=== PATIENT | male | born 1985 | race African-American/Black ===

== ENCOUNTER 2018-11-02 11:38 | Emergency (ER) | payer MEDICAID ==
[~2018-11-02] VITALS: Ht 190.5 cm; Wt 100.0 kg
[2018-11-02 12:01] VITALS: BP 127/76
[2018-11-02 12:28] LABS: BASOPHILS % 1.2 % (0.0-2.0); EOSINOPHILS % 8.8 % (0.0-5.0); HEMATOCRIT. 43.9 % (42.0-52.0); HEMOGLOBIN. 14.8 g/dL (14.0-18.0); LYMPHOCYTES % 25.3 % (20.0-50.0); MEAN CORPUSCULAR HEMOGLOBIN 28.8 pg (28.0-32.0); MEAN CORPUSCULAR VOLUME 85.5 fL (80.0-94.0); MEAN PLATELET VOLUME 8.5 fl (7.4-10.4); MONOCYTES % 8.7 % (2.0-8.0); PLATELET 179 x1000/uL (130-400); RED BLOOD CELL COUNT 5.14 mill/uL (4.7-6.1)
[2018-11-02 12:35] LABS: CHLORIDE 104 mEq/L (98-107)
== END 2018-11-02 14:37 | disposition home or self-care (01) ==
LOC: ER 11:38
DX: R10.9 Unspecified abdominal pain (principal); R11.2 Nausea with vomiting, unspecified
CPT/HCPCS: 36415; 74018; 99284

== ENCOUNTER 2021-11-29 10:37 | Emergency (ER) | payer BC, MEDICAID ==
[~2021-11-29] VITALS: Ht 185.4 cm; Wt 100.0 kg
[2021-11-29] MEDS ORDERED: AMOXICILLIN/POTASSIUM CLAVULANATE 875/125MG TAB PO ONE (14:00)
[2021-11-29] MEDS ORDERED: KETOROLAC 30MG/ML VIAL IV ONE (14:45)
[2021-11-29] MEDS ORDERED: AMOX1TAB16 MT (15:04)
[2021-11-29] MEDS ORDERED: HYDR-4001 MT (15:04)
[2021-11-29 15:30] VITALS: BP 132/82
== END 2021-11-29 15:42 | disposition home or self-care (01) ==
LOC: ER 10:55
DX: K04.7 Periapical abscess without sinus (principal); R51.9 Headache, unspecified
CPT/HCPCS: 70450; 70486; 96374; 99284; J1885